=== PATIENT | female | born 1995 | race Caucasian/White ===

== ENCOUNTER 2017-05-04 23:42 | Inpatient (IN) | payer OTHER ==
[~2017-05-04] VITALS: Ht 165.1 cm; Wt 88.0 kg
[~2017-05-04 23:42] MED LIST: ACET50TA PO; CALC500C16 PO; DOCU100C16 PO; IBUP60TA PO; IBUP80TA PO; MILKSUS PO; PERCOCET PO; TUMS500C PO
[2017-05-05] MEDS ORDERED: CHARCOAL ACTIVATED LIQUID 25 GM/120 ML BTL PO ONE (00:15)
[2017-05-05 00:41] LABS: MEAN CORPUSCULAR HEMOGLOBIN 30.1 pg (27.0-33.0); MEAN CORPUSCULAR HGB CONC 33.3 g/dl (32.0-36.5); MEAN CORPUSCULAR VOLUME 90.3 fl (80.0-96.0); RED CELL DISTRIBUTION WIDTH 11.5 % (11.5-14.5); WHITE BLOOD COUNT 8.9 10^3/uL (4.0-10.0)
[2017-05-05 00:50] LABS: CONTROL LINE HCG INT CTR LINE PRESENT
[2017-05-05 00:55] LABS: METHADONE URINE NEGATIVE (NEGATIVE)
[2017-05-05 01:07] LABS: ALBUMIN 3.8 GM/DL (3.2-5.2); ALKALINE PHOSPHATASE 131 U/L (45-117); ALT/SGPT 16 U/L (12-78); ANION GAP 6 MEQ/L (8-16); AST/SGOT 14 U/L (15-37); BILIRUBIN,DIRECT 0.1 MG/DL (0.0-0.2); BILIRUBIN,TOTAL 0.2 MG/DL (0.2-1.0); BLOOD UREA NITROGEN 16 MG/DL (7-18); CALCIUM LEVEL 8.9 MG/DL (8.5-10.1); CARBON DIOXIDE LEVEL 28 MEQ/L (21-32); CHLORIDE LEVEL 105 MEQ/L (98-107); CREATININE FOR GFR 0.69 MG/DL (0.55-1.02); GLOMERULAR FILTRATION RATE > 60.0 (>60); GLUCOSE, FASTING 115 MG/DL (70-105); POTASSIUM SERUM 4.1 MEQ/L (3.5-5.1); SODIUM LEVEL 139 MEQ/L (136-145)
[2017-05-05] MEDS ORDERED: FLUO20CA8 PO (05:00)
--- NOTE | 2017-05-05 05:51 | ECGEPIP ---
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
[2017-05-05] MEDS ORDERED: hydrOXYzine 50 MG TAB PO PRN (06:15)
[2017-05-05] MEDS ORDERED: ACETAMINOPHEN TAB 650MG DOSE (2X325MG) PO PRN (06:15)
[2017-05-05] MEDS ORDERED: MOM 30ML SUSPENSION UDC PO PRN (06:15)
[2017-05-05] MEDS ORDERED: MAALOX 30 ML SUSP *UDC PO PRN (06:15)
[2017-05-05 08:48] VITALS: BP 116/75
[2017-05-05] MEDS ORDERED: FLUoxetine 20 MG CAP PO SCH (09:00)
--- NOTE | 2017-05-05 14:47 | MHHPEPDOC ---
[facility] History & Physical History and Physical DATE OF ADMISSION: May 05, 2017 at 06:02 LEGAL STATUS AT ADMISSION: . 9:3 9. Emergency Involuntary admission CHIEF COMPLAINT: . Suicide attempt by cutting both arms worsening symptoms of depression in the context of marital problems, HISTORY OF THE PRESENT ILLNESS: Patient is a 22-year-old female, with long history of depression and previous self harm behaviors by cutting; patient was admitted after she tried to hurt herself by cutting her wrists and arms- bilateral . She reported worsening symptoms of depression triggered by marital conflicts. SHE ENDORSED DEPRESSED MOOD, LOW ENERGY AND ANHEDONIA and AFTER HAVING AN ARGUMENT WITH HER . SHE Cut HERSELF IN BOTH ARMS. PATIENT DENIED HAVING INTENTIONS OF KILLING HERSELF. HOWEVER, SHE HAD THOSE BEHAVIORS IN THE PAST WITH 2 PREVIOUS SUICIDE ATTEMPTS VERSUS GESTURES BY CUTTING, LAST ONE 5 YEARS AGO AND THE FIRST TIME SEVERAL YEARS BEFORE THAT ATTEMPT. THIS IS THE FIRST PSYCHIATRIC ADMISSION OF THE PATIENT. PATIENT HAS BEEN IN OUTPATIENT TREATMENT ON AND OFF WITH BOTH PSYCHIATRY AND PSYCHOTHERAPIST. SHE WAS TAKING PROZAC FOR DEPRESSION BUT STOPPED SEVERAL WEEKS AGO. SHE WAS NOT TAKING ANY ANTIDEPRESSANT MEDICATION WAS NOT TAKING ANY ANTIDEPRESSANT MEDICATION. DENIED ANY MANIC, HYPOMANIC SYMPTOMS, DENIED ANY SYMPTOMS OF PSYCHOSIS. PATIENT DENIED ALCOHOL OR ANY ILLICIT DRUG USE. PATIENT HAS STRONG FAMILY HISTORY OF DEPRESSION REPORTED BOTH PARENTS AND GRANDPARENTS SUFFERED FROM DEPRESSION. NO HISTORY OF SUICIDE IN THE FAMILY. 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 HER IS IN THE AND THEY HAVE A 2-YEAR-OLD CHILD. PATIENT THINKS THAT THE ANTIDEPRESSANT PROZAC, WAS NOT improving her symptoms of depression. PSYCHIATRIC REVIEW OF SYSTEMS: Affective: . Symptoms of depression including depressed mood, low energy, anhedonia and constant ideas of self-harm behaviors Anxiety: . Report of moderate anxiety Trauma: . No known history of trauma Psychosis: . No psychosis Personally: . Cluster B personality disorder traits/borderline PAST PSYCHIATRIC HISTORY: Prior Psychiatric Disorder: . Depression and anxiety Outpatient Treatment: [facility] Suicidal/Self injurious: . History of self cutting behaviors, previous to yesterday. She called herself 5 years ago in the hands and arms Psychotropic Medication History: . Reported only taken Prozac in the past ALLERGIES: Please see below. FAMILY PSYCHIATRIC HISTORY: . Strong family history of depression reported that mother, father and grandparents SOCIAL HISTORY: Patient is with the officer. They have a 2 year old child. 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 is the main financial support of the family , but recently they've had increasing marital conflicts SUBSTANCE ABUSE HISTORY: . Denied alcohol or any drug use PAST MEDICAL/SURGICAL HISTORY: 1. . Obesity 2. . VITAL SIGNS: Temperature , pulse , respiratory rate , blood pressure , pulse oximetry % on room air. MENTAL STATUS EXAMINATION: General appearance: Patient is a 22 years. All of this female that looks stated age with fair grooming and hygiene, tearful during the interview but cooperative Speech: . Fluent and coherent Thought processes: . Linear and goal-directed Thought content: .No suicidal or homicidal ideas. No delusions elicited. No perceptual disturbances Abstract reasoning and computation: . Adequate Description of associations: . Adequate Description of abnormal or psychotic thoughts: . No psychosis Judgment: . poor Insight: . Limited Orientation: . Oriented 3 Recent and remote memory: . Intact Attention span and concentration: . Adequate Fund of knowledge: . Average Mood: "No good." Affect: . Constricted , labile at times DIAGNOSES: 1. . Major depressive disorder, recurrent, moderate, without psychosis 2. . cluster B personality disorder traits/borderline 3. . ASSESSMENT: 22 years old female with worsening symptoms of depression in the context of moderate alcohol conflicts. She presented after having a suicide attempt versus gesture by court in both arms after having an argument with her . Patient endorsed depressed mood, low energy, anhedonia, diminished concentration and and had suicidal ideas, but currently denied. Patient was not taking antidepressant medication for several weeks. However, she was taking Prozac before, both reported no benefit possible due to noncompliance. Patient will be restarted in antidepressant medication and will need intensive psychotherapy including injury individual and couples therapy as outpatient PROBLEM LIST: 1. . Worsening depression 2. . 3. . INITIAL TREATMENT PLAN: 1. Patient was admitted on an involuntary legal status 2. Complete history was obtained. 3. With patients permission, family will be contacted and database will be expanded. 4. Patients medication regimen will be reviewed and changed accordingly. 5. Patient will be provided with protected environment. 6. Patient will be treated with individual, group, and milieu therapies. 7. Patient will receive supportive psych-education. 8. Discharge planning will commence immediately. 9. Outpatient follow-up treatment will be strongly recommended. 10. The initial treatment plan will focus initially on: * Depression. * . Coping skills. Avoidance self cutting behaviors as coping mechanisms ESTIMATED LENGTH OF STAY: 5-7 days. TIME SPENT COUNSELING AND COORDINATING INITIAL CARE: 50 minutes. Laboratory Data 24H Labs Laboratory Tests 2 05/05/17 00:17: Anion Gap 6L, Glomerular Filtration Rate > 60.0, Calcium Level 8.9, Aspartate Amino Transf (AST/SGOT) 14L, Alanine Aminotransferase (ALT/SGPT) 16, Alkaline Phosphatase 131H, Total Bilirubin 0.2, Direct Bilirubin 0.1, Total Creatine Kinase 58, Total Protein 8.0, Albumin 3.8, Albumin/Globulin Ratio 0.90L, Thyroid Stimulating Hormone (TSH) 1.130, Human Chorionic Gonadotropin, Qual NEGATIVE, Salicylates Level < 1.7L, Urine Amphetamines Screen NEGATIVE, Urine Benzodiazepines Screen NEGATIVE, Urine Opiates Screen NEGATIVE, Urine Methadone Screen NEGATIVE, Acetaminophen Level < 2.0L, Urine Barbiturates Screen NEGATIVE , Urine Phencyclidine Screen NEGATIVE, Urine Cocaine Metabolite Screen NEGATIVE , Urine Cannabinoids Screen NEGATIVE, Ethyl Alcohol Level < 0.003 CBC/BMP Laboratory Tests 05/05/17 00:17 Red Blood Count 4.62, Mean Corpuscular Volume 90.3, Mean Corpuscular Hemoglobin 30.1, Mean Corpuscular Hemoglobin Concent 33.3, Red Cell Distribution Width 11.5 Medications Scheduled Fluoxetine Hcl (Fluoxetine) 20 Mg Cap, 20 MG PO BID, (Reported) Allergies Coded Allergies: No Known Allergies (Unverified , 03/06/15) BEA LINDA MD May 05, 2017 14:47
[2017-05-05] MEDS: ESCITALOPRAM OXALATE 10 MG TAB (LEXAPRO) PO SCH (15:24)
[2017-05-06 06:37] VITALS: BP 117/60
[2017-05-06] MEDS: ESCITALOPRAM OXALATE 10 MG TAB (LEXAPRO) PO SCH (09:21)
--- NOTE | 2017-05-06 13:58 | MHIPNPDOC ---
[facility] Progress Note Progress Note DATE OF SERVICE: 05/06/17 HISTORY: 22 years old female that was admitted due to worsening symptoms of depression and suicide gesture by cutting her arms after having an argument with her . Denied any ideas of self harm Endorsed depressed mood as she can not see her daughter. No side effects of medications VITAL SIGNS: See below. NEW TEST RESULTS: . CURRENT MEDICATIONS: See below. MENTAL STATUS EXAMINATION: General appearance: Patient is a 22 years. All of this female that looks stated age with fair grooming and hygiene, cooperative Speech: . Fluent and coherent Thought processes: . Linear and goal-directed Thought content: .No suicidal or homicidal ideas. No delusions elicited. No perceptual disturbances Abstract reasoning and computation: . Adequate Description of associations: . Adequate Description of abnormal or psychotic thoughts: . No psychosis Judgment: . poor Insight: . Limited Orientation: . Oriented 3 Recent and remote memory: . Intact Attention span and concentration: . Adequate Fund of knowledge: . Average Mood: "ok." Affect: full range DIAGNOSES: 1. .Depressive disorder n.o.s, r/o adjustment disorder 2. .Cluster B personality disorder traits 3. . MANAGEMENT PLAN: . continue current medications family meeting discharge plan TIME SPENT: [25] minutes. Vital Signs Vital Signs Date Time Temp Pulse Resp B/P (MAP) Pulse Ox O2 Delivery O2 Flow Rate FiO2 05/06/17 06:37 98.4 80 16 117/60 (79) 05/05/17 08:48 98 Room Air Current Medications Current Medications Acetaminophen (Tylenol Tab) 650 mg Q6HP PRN PO HEADACHE or DISCOMFORT; Start 05/05/17 at 06:15; Stop 06/04/17 at 06:14 Al Hydrox/Mg Hydrox/Simethicone (Mylanta) 30 ml Q4HP PRN PO HEARTBURN/ INDIGESTION; Start 05/05/17 at 06:15; Stop 06/04/17 at 06:14 Escitalopram Oxalate (Lexapro) 10 mg DAILY PO Last administered on 05/06/17t 09 :21; Start 05/05/17 at 15:00; Stop 06/04/17 at 14:59 Fluoxetine HCl (PROzac) 40 mg DAILY PO ; Start 05/05/17 at 09:00; Stop 05/05/17 at 14:28; Status DC Home Med (Med Rec Complete!) ASDIRECTED XX ; Start 05/05/17 at 05:00; Stop 05/05/17 at 05:02; Status DC Hydroxyzine HCl (Atarax) 50 mg Q6HP PRN PO ANXIETY; Start 05/05/17 at 06:15; Stop 06/04/17 at 06:14 Magnesium Hydroxide (Milk Of Magnesia) 30 ml DAILYPRN PRN PO CONSTIPATION; Start 05/05/17 at 06:15; Stop 06/04/17 at 06:14 Trazodone HCl (Desyrel) 50 mg QHSP PRN PO INSOMNIA; Start 05/05/17 at 06:15; Stop 06/04/17 at 06:14 Allergies Coded Allergies: No Known Allergies (Unverified , 03/06/15) BEA LINDA MD May 06, 2017 13:58
[2017-05-06] MEDS: NEOSPORIN TOP OINT 15GM TOP PRN (16:00)
[2017-05-06 18:00] VITALS: BP 117/51
[2017-05-07 07:04] VITALS: BP 113/59
[2017-05-07] MEDS: ESCITALOPRAM OXALATE 10 MG TAB (LEXAPRO) PO SCH (08:26)
[2017-05-07] MEDS: NEOSPORIN TOP OINT 15GM TOP PRN ×2 (08:27→18:06)
--- NOTE | 2017-05-07 09:56 | HPE ---
DATE OF ADMISSION: 05/05/2017 Please refer to the psychiatric history and evaluation for further details on this admission. This examination and history is intended for medical issues which may need treatment, followup or consultation on this 22-year-old female. ALLERGIES: No known allergies. PRIMARY CARE PROVIDER: [facility] [place]. SOCIAL HISTORY: . Her is a soldier, currently stationed at [employer]. They have a 2-year-old son. ETOH - rarely. Smokes - never. Recreational drug use - none. PAST MEDICAL HISTORY: 1. Depression. 2. Anxiety. 3. History of frequent urinary tract infections (UTIs) and has been to [facility] and will follow up with them. PAST SURGICAL HISTORY: 1. times two. 2. [place] teeth extractions. HOME MEDICATIONS: - fluoxetine 20 mg by mouth twice a day, which she stopped, she did not feel it was helping her and she has taken none for two weeks FAMILY HISTORY: Mother has diabetes. LABORATORY STUDIES: CBC is normal. Lytes normal. BUN and creatinine were 16 and 0.69. TSH was 1.13. Toxicology screen negative. EKG showed sinus rhythm. REVIEW OF SYSTEMS: Ten systems review was done and other than some burning in her bilateral forearms where she lacerated them she had no complaints. PHYSICAL EXAMINATION: 22-year-old cooperative female in no acute distress. Height 65 inches. Weight 88 kg. Body mass index (BMI) 32.1. Blood pressure 117/51. Pulse 86. Respirations 16. Temperature 98.2. The patient is alert and oriented times three. Pupils equal and reactive to light. Extraocular movements intact. Cornea and sclera clear. Conjunctiva normal. No facial asymmetry. Pharynx, tongue and gums pink and moist. Tongue is midline. Neck is supple, without lymphadenopathy. No thyromegaly. No goiter. Carotids 2+, without bruit. Chest clear to auscultation, without wheeze or retraction. Heart is regular. Abdomen benign. Bowel sounds positive. Genitourinary ()/Rectal: Not done. Extremities show full range of motion. No cyanosis, clubbing or edema. In her forearms, left has several superficial lacerations and the right has two. No redness, no drainage. Dry sterile Telfa applied. Hand grasp equal. Peripheral pulses equal and palpable bilaterally. Skin is warm and dry. IMPRESSION AND PLAN: 1. Psychiatric. Plan per psychiatry. 2. Daily Telfa to lacerations and bacitracin twice a day. 3. Frequent UTIs. None currently. Continue followup with [facility]. 4. No other acute medical issues.
--- NOTE | 2017-05-07 16:31 | MHIPNPDOC ---
[facility] Progress Note Progress Note DATE OF SERVICE: 05/07/17 HISTORY: day 3 of admission for depression, cutting and SI VITAL SIGNS: See below. NEW TEST RESULTS: CURRENT MEDICATIONS: See below. MENTAL STATUS EXAMINATION: Patient is a 22-year old female, who is tall, medium frame, short dark hair with red tint, wearing hospital scrubs and glasses, cooperative upon approach. Speech: Is spontaneous, rapid, non-pressured Language skills are intact. Thought processes including: goal directed. Thought content: appropriate. Abstract reasoning, and computation: good. Description of associations: good. Description of abnormal or psychotic thoughts: no psychotic symptoms illicited, pt denies intent to harm self or others. Has a h/o cutting self since middle and High School. Judgment: limited Insight: fair. Orientation: oriented x 4 Recent and remote memory: intact. Attention span and concentration: good. Fund of knowledge: Full. Mood: anxious & depressed. Affect: congruent. DIAGNOSES: 1. Major depressive disorder, recurrent, moderate, without psychosis 2. cluster B personality disorder traits/borderline 3. Anxiety disorder, unspecified. bipolar disorder ruled out ASSESSMENT:Pt reports that over the past 2 weeks she sleeps mainly 2-4 hours a night and then at least 1 day a week she sleeps 14 hours right through alarms, etc. She reports racing thoughts a night that bother her sleep. She will toss and turn and she also has hip pain. Sometimes she is just not tired and will get up and go to the gym or clean the house. Pt will try ear plugs and trazodone while on the unit. In assessing her for bipolar disorder she does report a good mood for 2-3 days a month where "nothing can stop me" and she has excess energy and "gets a lot done." She has a slight elevation in mood when she feels "nothing can stop me". She denies a h/o impulsive decision making or grandiosity. Her Maternal Grandmother has bipolar disorder so she was educated on the fact that sometimes this disorder does not manifest fully in women until later in life. She should be mindful of this and aware of the s/s of susie. Regarding depression: pt states her interest in things has dropped over the past 2 weeks. She usually enjoys cross [employer] and on line video games but she has not been doing either. She works from 45-60 hours a week. She reports psychomotor retardation lately where she will sit at the computer and not turn it on. She denies suicidal thoughts on a regular basis. She said her SI with cutting was the first time in weeks she had thoughts of harming herself. She has been in treatment at [facility] but does not like that her therapy is via Tele- medicine and a new person sees her and repeats the intake questions over and over. So she is not making any progress. In addition to cutting herself she overdosed on 30 Ibuprofen 200 mg each. She shut off her phone to make sure no one could contact her. She did not require sutures but she was given charcoal in the ED. Pt admits to "downplaying my depression". She says she will "shrug it off". She reports "lots of scars on her thighs, stomach and shoulder from cutting. Pt reports eating only 1 meal a day lately. No weight loss but she did purposely lose 65 lbs after her was deployed but regained 25 lbs once he returned. Pt reports "lots of guilt" and feelings of hopelessness. Pt reports her concentration varies day to day. Bekah also reports anxiety over her new job. She is trying to make friends but many of her coworkers are younger than she. Her has been having trouble at work in the and was recently demoted resulting in loss of pay. This has been a stressor to her. She reports getting tightness in her chest, feels pressure in her chest and finds it hard to think and breathe. His issues cause her to feel anxiety. Bekah reports an "average childhood". Father was in the hospital and had numerous surgeries when she was growing up. Apparently he was severely abused as a child result in deformities that needed correction. He also got a serious infection when something was left inside him from one of those surgeries. Her mother worked 3 jobs as dad was quite disabled,unable to bend or lift. She was raised with 2 younger brothers who are now 16 and 19 yo. Her mother and family live in [facility]. Bekah says she often felt unwanted growing up since her mother had her when she was still in . She reports a good relationship with her father but for years she hated her mother. Toward the end of she decided to enlist in the [employer]. the week before completing boot camp she fractured her hip and leg. She had to be chaptered out. She was told by her family before she left for the [employer] that she would "make a wonderful killer". She adds, "that really got under my skin". Once she was discharged her family apologized to her for their opinion of the . She also reports that several years ago her mother apologized to her for things of the past and they have made serious headway in repairing their relationship. Pt is asking for a family meeting soon because she wants both her and her mother present. Mom needs to return to [facility] and if "is not going to be there for me I want to go home with my mother". Pt states deployed 4 months after their baby was born. She wants him to be part of her recovery but if he is not committed to it she wants to leave. Pt reports she is having her menses 20 days out of the month. She is working on this situation with her LAUNDRY LABORER but complains that the care and consultation is taking along time. MANAGEMENT PLAN: enc use of hydroxyzine prn for anxiety, pt is attending programming (she had many complaints about the lack of staffing over the weekend ). Monitor sleep and continue close observation. Salon Professional will evaluate response to SSRI, no side effects reported. Educated pt on risk and benefits of medication including not missing doses or stopping the med abruptly - side effects of doing so explained. Length of time for med to work discussed. TIME SPENT: 25 minutes. Vital Signs Vital Signs Date Time Temp Pulse Resp B/P (MAP) Pulse Ox O2 Delivery O2 Flow Rate FiO2 05/07/17 07:04 97.2 90 16 113/59 (77) Room Air 05/05/17 08:48 98 Current Medications Current Medications Acetaminophen (Tylenol Tab) 650 mg Q6HP PRN PO HEADACHE or DISCOMFORT; Start 05/05/17 at 06:15; Stop 06/04/17 at 06:14 Al Hydrox/Mg Hydrox/Simethicone (Mylanta) 30 ml Q4HP PRN PO HEARTBURN/ INDIGESTION; Start 05/05/17 at 06:15; Stop 06/04/17 at 06:14 Escitalopram Oxalate (Lexapro) 10 mg DAILY PO Last administered on 05/07/17t 08 :26; Start 05/05/17 at 15:00; Stop 06/04/17 at 14:59 Fluoxetine HCl (PROzac) 40 mg DAILY PO ; Start 05/05/17 at 09:00; Stop 05/05/17 at 14:28; Status DC Home Med (Med Rec Complete!) ASDIRECTED XX ; Start 05/05/17 at 05:00; Stop 05/05/17 at 05:02; Status DC Hydroxyzine HCl (Atarax) 50 mg Q6HP PRN PO ANXIETY; Start 05/05/17 at 06:15; Stop 06/04/17 at 06:14 Magnesium Hydroxide (Milk Of Magnesia) 30 ml DAILYPRN PRN PO CONSTIPATION; Start 05/05/17 at 06:15; Stop 06/04/17 at 06:14 Neomycin/ Polymyxin/ Bacitracin (Neosporin) apply to affected area BIDP PRN TOP lacerations/abrassions Last administered on 05/07/17t 08:27; Start 05/06/17 at 14:15; Stop 06/05/17 at 14:14 Trazodone HCl (Desyrel) 50 mg QHSP PRN PO INSOMNIA; Start 05/05/17 at 06:15; Stop 06/04/17 at 06:14 Allergies Coded Allergies: No Known Allergies (Unverified , 03/06/15) Reba Mendes May 07, 2017 16:31
[2017-05-07 18:00] VITALS: BP 127/74
[2017-05-07] MEDS: hydrOXYzine 25 MG TAB PO PRN (21:54)
[2017-05-07] MEDS: traZODone 50 MG TAB PO PRN (21:54)
[2017-05-08 06:46] VITALS: BP 98/57
[2017-05-08] MEDS: ESCITALOPRAM OXALATE 10 MG TAB (LEXAPRO) PO SCH (08:41)
[2017-05-08] MEDS: hydrOXYzine 25 MG TAB PO PRN (08:42)
[2017-05-08] MEDS: NEOSPORIN TOP OINT 15GM TOP PRN (10:41)
--- NOTE | 2017-05-08 10:57 | MHIPNPDOC ---
[facility] Progress Note Progress Note DATE OF SERVICE: 05/08/17 HISTORY: day 4 of admission for suicide attempt by cutting and overdose. VITAL SIGNS: See below. NEW TEST RESULTS: na CURRENT MEDICATIONS: See below. MENTAL STATUS EXAMINATION: Patient is a 22-year old female, who is tall, medium frame, short dark hair with red tint, wearing hospital scrubs and glasses, cooperative upon approach, bandages to fore arm. Speech: Is spontaneous, rapid, non-pressured Language skills are intact. Thought processes including: goal directed. Thought content: appropriate. Abstract reasoning, and computation: good. Description of associations: good. Description of abnormal or psychotic thoughts: no psychotic symptoms illicited, pt denies intent to harm self or others. Has a h/o cutting self since middle and High School. Judgment: limited Insight: fair. Orientation: oriented x 4 Recent and remote memory: intact. Attention span and concentration: good. Fund of knowledge: Full. Mood: anxious & depressed. Affect: congruent. DIAGNOSES: 1. Major depressive disorder, recurrent, moderate, without psychosis 2. cluster B personality disorder traits/borderline 3. Anxiety disorder, unspecified. bipolar disorder ruled out ASSESSMENT:pt participated in treatment planning session this a.m. she has requested a meeting with her and mother and we are making arrangements for this. Pt reports disturbed last night due to the noise on the unit by another pt. Even ear plugs did not help her. She remains depressed and has just begun the lexapro treatment. It is felt the Prozac was too activating for her. She has symptoms consistent with bipolar disorder but not enough to convince short story writer that is her primary diagnosis. Positive maternal family history for bipolar. Bears watching. Pt is using prn Atarax for effective relief from anxiety and prn Trazodone for sleep. Pt is attending well to personal needs. She is participating in therapeutic programming and making progress in regard to coping skills. MANAGEMENT PLAN: Family meeting scheduled for tomorrow at 11:30. Not planning to discharge. Wounds are still healing, mood is not stable. Impulse controlled not well addressed. TIME SPENT: 15 minutes. Vital Signs Vital Signs Date Time Temp Pulse Resp B/P (MAP) Pulse Ox O2 Delivery O2 Flow Rate FiO2 05/08/17 06:46 98.1 77 16 98/57 (71) Room Air 05/05/17 08:48 98 Current Medications Current Medications Acetaminophen (Tylenol Tab) 650 mg Q6HP PRN PO HEADACHE or DISCOMFORT; Start 05/05/17 at 06:15; Stop 06/04/17 at 06:14 Al Hydrox/Mg Hydrox/Simethicone (Mylanta) 30 ml Q4HP PRN PO HEARTBURN/ INDIGESTION; Start 05/05/17 at 06:15; Stop 06/04/17 at 06:14 Escitalopram Oxalate (Lexapro) 10 mg DAILY PO Last administered on 05/08/17 08:41; Start 05/05/17 at 15:00; Stop 06/04/17 at 14:59 Fluoxetine HCl (PROzac) 40 mg DAILY PO ; Start 05/05/17 at 09:00; Stop 05/05/17 at 14:28; Status DC Home Med (Med Rec Complete!) ASDIRECTED XX ; Start 05/05/17 at 05:00; Stop 05/05/17 at 05:02; Status DC Hydroxyzine HCl (Atarax) 25 mg Q6HP PRN PO ANXIETY Last administered on 08:42; Start 05/07/17 at 16:00; Stop 06/06/17 at 15:59 Hydroxyzine HCl (Atarax) 50 mg Q6HP PRN PO ANXIETY; Start 05/05/17 at 06:15; Stop 05/07/17 at 15:58; Status DC Magnesium Hydroxide (Milk Of Magnesia) 30 ml DAILYPRN PRN PO CONSTIPATION; Start 05/05/17 at 06:15; Stop 06/04/17 at 06:14 Neomycin/ Polymyxin/ Bacitracin (Neosporin) apply to affected area BIDP PRN TOP lacerations/abrassions Last administered on 05/08/17 10:41; Start at 14:15; Stop 06/05/17 at 14:14 Trazodone HCl (Desyrel) 50 mg QHSP PRN PO INSOMNIA Last administered on 21:54; Start 05/05/17 at 06:15; Stop 06/04/17 at 06:14 Allergies Coded Allergies: No Known Allergies (Unverified , 03/06/15) Reba Mendes May 08, 2017 10:56
[2017-05-08 18:00] VITALS: BP 112/55
[2017-05-08] MEDS: traZODone 50 MG TAB PO PRN (21:48)
[2017-05-09 06:47] VITALS: BP 102/59
[2017-05-09] MEDS: hydrOXYzine 25 MG TAB PO PRN (08:22)
[2017-05-09] MEDS: ESCITALOPRAM OXALATE 10 MG TAB (LEXAPRO) PO SCH (08:23)
[2017-05-09] MEDS ORDERED: ESCI10TA2 PO (09:32)
[2017-05-09] MEDS ORDERED: HYDR-3363 PO (09:32)
[2017-05-09] MEDS ORDERED: TRAZO50TA PO (09:32)
--- NOTE | 2017-05-09 14:48 | MHDSPDOC ---
[facility] Discharge Summary Discharge Summary DATE OF ADMISSION: May 05, 2017 at 06:02 DATE OF DISCHARGE: May 09, 2017 at 12:25 DISCHARGE DIAGNOSES: 1. MDD, recurrent severe, without psychotic features 2. Cluster B personality, borderline personality disorder REASON FOR ADMISSION: pt overdosed on Ibuprofen (30 tabs) and cut her left forearm with a knife following an argument with her . Long h./o self- mutilation. pt has family h/o bipolar disorder. Pt shows lack of impulse control and projects her issues outside of herself. CONSULTANTS INVOLVED:na TREATMENT AND PROGRESS ON THE UNIT : Pt made numerous complaints about her care , lack of therapy, lack of attention and on the other hand wanted immediate discharge if her was not agreeable to doing things the way she felt they should be done. 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 Pt requested a famly meeting with an mother shortly after discharge. Meeting held today and pt released per her desire to be discharged. Pt stated she only benefitted from 1 educational program. HOSPITAL COURSE: pt was changed by life insurance underwriter from Prozac to Lexapro which was well tolerated and better suited to pts depression. She was provided anxiety medication and a sleep aid. pt found these med changes to her benefit however claimed life insurance underwriter did nothing to help her. This was pointed out to patient and she did not deny that the medication changes were helpful. Pt had expectations of family education and was informed that this can be done outside of the acute hospital setting. Of course all family questions would be addressed by the treatment team at the discharge meeting. DISCHARGE ASSESSMENT: Pt had her heart set on leaving even though life insurance underwriter never told her that she would be discharged today. Apparently the staff told her she would be as that is most often the case after a family meeting. It was not the intent following this meeting but since pt had nothing positive to say about her care and treatment it was decided she would improve faster in another environment. Her wounds were healing and her outpatient appts were made for later this week. Mother provided [place] paperwork which life insurance underwriter completed. Letter provided for Bekah's employer. Bekah plans to reduce her hours to a more tolerable amount to reduce her stress. MENTAL STATUS EXAMINATION ON DISCHARGE: Patient is a 22-year old female, who is tall, medium frame, short dark hair with red tint, wearing hospital scrubs and glasses, cooperative upon approach, bandages to fore arm. Speech: Is spontaneous, rapid, non-pressured Language skills are intact. Thought processes including: goal directed. Thought content: appropriate. Abstract reasoning, and computation: good. Description of associations: good. Description of abnormal or psychotic thoughts: no psychotic symptoms illicited, pt denies intent to harm self or others. Has a h/o cutting self since middle and High School. Judgment: limited Insight: fair. Orientation: oriented x 4 Recent and remote memory: intact. Attention span and concentration: good. Fund of knowledge: Full. Mood: anxious & depressed. Affect: congruent. MEDICATIONS ON DISCHARGE: - Lexapro for anxiety and depression - Trazodone for Insomnia - Atarax for Anxiety. PLAN/FOLLOWUP ARRANGEMENTS: [facility] for meds and therapy. The amount of time spent in the coordination of care for this patient was approximately minutes. Vital Signs/I&Os Vital Signs Date Time Temp Pulse Resp B/P (MAP) Pulse Ox O2 Delivery O2 Flow Rate FiO2 05/09/17 06:47 98.2 72 16 102/59 (73) 05/08/17 06:46 Room Air 05/05/17 08:48 98 Medications Scheduled Escitalopram Oxalate (Escitalopram Oxalate) 10 Mg Tab, 10 MG PO DAILY for MOOD for 7 Days, #7 do not stop medication abruptly. Scheduled PRN Hydroxyzine HCl (Hydroxyzine HCl) 25 Mg Tab, 25 MG PO Q6HP PRN for ANXIETY for 7 Days, #28 take as needed for anxiety up to 4 times a day. Trazodone HCl (Trazodone HCl) 50 Mg Tab, 50 MG PO QHSP PRN for INSOMNIA for 7 Days, #7 take as needed for anxiety. allow 9-10 hours of sleep. Allergies Coded Allergies: No Known Allergies (Unverified , 03/06/15) Reba Mendes May 09, 2017 14:48
== END 2017-05-09 12:25 | disposition home or self-care (01) | DRG 885 ==
LOC: EDBD 23:42 → M ED 23:42 → EDUNIT# 23:42 → M ED INP 05-05 06:02 → M PSY 05-05 08:40
PROVIDERS: ADMIT Psychiatry & Neurology Psychiatry; ATTEND Psychiatry & Neurology Psychiatry
DX: F33.2 Major depressive disorder, recurrent severe without psychotic features (principal); F60.3 Borderline personality disorder; F34.1 Dysthymic disorder; F41.9 Anxiety disorder, unspecified

== ENCOUNTER → 2018-04-09 | Outpatient (REF) | LOC: M SMT 14:16 | DX: Z00.00 Encounter for general adult medical examination without abnormal findings (principal) ==